=== PATIENT | male | born 1980 | race Caucasian/White ===

== ENCOUNTER 2020-12-01 03:20 | Emergency (ER) | payer BC ==
[2020-12-01] MEDS ORDERED: Ketorolac 60 MG/2 ML SDV IM ONE (03:45)
--- NOTE | 2020-12-01 03:48 | EDM.PDOC ---
ED HPI GENERAL MEDICAL PROBLEM - General Chief Complaint: Back Pain or Injury Stated Complaint: BACK PAIN Time Seen by Provider: 12/01/20 03:35 Source of Information: Reports: Patient History Limitations: Reports: No Limitations - History of Present Illness INITIAL COMMENTS - FREE TEXT/NARRATIVE: 40-year-old male woke up 2 hours ago with intense left-sided flank pain radiating around to the left lower abdomen. It was the worst pain he had ever experienced, so he drove over 40 miles to be checked out. The pain is now lessened but is still present. No vomiting, no fevers or chills, no dysuria. Onset: Sudden Duration: Hour(s): (2 hours ago) Location: Reports: Back (Left flank and left lower abdomen) Associated Symptoms: Reports: No Other Symptoms Left Posterior Back Pain Score (Numeric/FACES): 3 - Related Data Allergies Allergy/AdvReac Type Severity Reaction Status Date / Time Tetanus Vaccines and Toxoid Allergy Sweating Verified 12/01/20 03:34 Home Meds: Home Meds NK [No Known Home Meds] 12/01/20 [History] Past Medical History Respiratory History: Reports: Asthma Neurological History: Reports: Other (See Below) Other Neuro History: chiari malformation 2 - Infectious Disease History Infectious Disease History: Reports: Chicken Pox Social & Family History - Tobacco Use Tobacco Use Status *Q: Current Every Day Tobacco User Years of Tobacco use: 28 Packs/Tins Daily: 1 - Caffeine Use Caffeine Use: Reports: Soda Caffeine Use Comment: 2 pops per day - Recreational Drug Use Recreational Drug Use: No ED ROS GENERAL - Review of Systems Review Of Systems: See Below Constitutional: Denies: Fever, Chills HEENT: Reports: No Symptoms Respiratory: Reports: No Symptoms Cardiovascular: Reports: No Symptoms GI/Abdominal: Reports: No Symptoms Skin: Reports: No Symptoms Neurological: Denies: Headache ED EXAM,LOWER BACK PAIN/INJURY - Physical Exam Exam: See Below Exam Limited By: Uncooperative General Appearance: No Apparent Distress (Still looks somewhat uncomfortable but not distressed) Head: Atraumatic Respiratory/Chest: No Respiratory Distress, Lungs Clear Cardiovascular: Regular Rate, Rhythm GI/Abdominal: Soft, Non-Tender Back Exam: No: CVA Tenderness (R), CVA Tenderness (L) Course - Vital Signs Last Recorded V/S: Last Vital Signs Temp 97.1 F 03/02/21 03:40 Pulse 86 12/01/20 03:40 Resp 16 12/01/20 03:40 BP 137/96 H 12/01/20 03:40 Pulse Ox 96 12/01/20 03:40 - Orders/Labs/Meds Meds: Medications Discontinued Medications Generic Name Dose Route Start Last Admin Trade Name Cornelia PRN Reason Stop Dose Admin Ketorolac Tromethamine 60 mg 12/01/20 03:45 12/01/20 03:49 Toradol IM 12/01/20 03:46 60 mg ONETIME ONE Administration Tamsulosin HCl 0.4 mg 12/01/20 04:18 12/01/20 04:23 Flomax PO 12/01/20 04:19 0.4 mg ONETIME ONE Administration - Re-Assessments/Exams Free Text/Narrative Re-Assessment/Exam: 12/01/20 03:47 This patient presents as a kidney stone in the left side, 60 mg of IM Toradol wa s given and a CT scan without contrast will be done to confirm. 12/01/20 04:18 CT scan shows a very small stone but still close to the bladder on the left side. A small amount of hydronephrosis is behind it. Patient was given 0.4 mg of Flomax, and had some improvement after the Toradol. 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 No sign of any additional renal or ureteral calculi on either side. Small cyst in the lower interpolar right kidney of no clinical concern. CT of the pelvis shows moderate enlargement of the prostate. Small fat containing direct right inguinal hernia. Departure - Departure Time of Disposition: 04:28 Disposition: Home, Self-Care 01 Clinical Impression: Renal colic on left side, Kidney stone on left side - Discharge Information Instructions: Kidney Stones, [id number] Referrals: PCP,None [Primary Care Provider] - Forms: ED Department Discharge Care Plan Goals: Take 1 Toradol or ketorolac pill every 6-8 hours, and add 1-2 Percocet if needed for extra pain control. Stay hydrated, and return anytime if worsening such as fever, vomiting the medications or pain is not controlled. Otherwise recheck in 2 to 3 days if pain is still persistent. Sepsis Event Note (ED) - Evaluation Sepsis Screening Result: No Definite Risk - Focused Exam Vital Signs: Vital Signs Temp Pulse Resp BP Pulse Ox 12/01/20 03:40 97.1 F 86 16 137/96 H 96
[2020-12-01] MEDS ORDERED: Tamsulosin 0.4 MG Cap.ER PO ONE (04:18)
--- NOTE | 2020-12-01 04:29 | CRLCT ---
INDICATION: Right flank pain. COMPARISON: None available TECHNIQUE: CT examination of the abdomen and pelvis was performed without contrast enhancement using 2 mm thick axial sections from the lung bases through the pubic symphysis. Oral contrast was not administered. Please note that all CT scans at this facility use dose modulation, iterative reconstruction, and/or weight-based dosing when appropriate to reduce radiation dose to as low as reasonably achievable. FINDINGS: In the abdomen, the unenhanced liver has several tiny cysts in the dome of the left lobe of the liver, in segments 2 and 4a. The largest is in segment 3 a measuring 7 millimeters in diameter. The rest of the liver is normal in appearance with no sign of any mass. The spleen, pancreas, and adrenals are normal in appearance. There is mild left hydronephrosis pre spine a 2 millimeter left proximal ureteral calculus located at the L2-3 level. There is no sign of any additional renal or ureteral calculi on either side. There is no sign of right hydronephrosis or hydroureter. There is a 1.3 centimeter low-density region in the lower interpolar right kidney consistent with a cyst. The gallbladder is normal in appearance. The abdominal aorta is normal in caliber with no sign of dilatation. There is no sign of retroperitoneal mass or adenopathy. The stomach, loops of small bowel, and colon in the abdomen are normal in appearance. There is a small fat containing periumbilical hernia. The cecum is located in the right lower quadrants, with the normal appendix also located in the right lower quadrant, above the pelvis. There is no sign of any inflammatory reaction around the appendix to suggest appendicitis. The loops of small bowel and colon in the pelvis are normal in appearance. The prostate is moderately enlarged and is otherwise normal in appearance. The urinary bladder is normal in appearance. There is no sign of pelvic or inguinal mass or adenopathy. There is a small fat containing direct inguinal hernia on the right. There is no sign of free air or free fluid in the abdomen or pelvis. The lung bases are clear. The osseous structures are normal in appearance for the patient`s age. 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 No sign of any additional renal or ureteral calculi on either side. Small cyst in the lower interpolar right kidney of no clinical concern. CT of the pelvis shows moderate enlargement of the prostate. Small fat containing direct right inguinal hernia. Please note that all CT scans at this facility use dose modulation, iterative reconstruction, and/or weight-based dosing when appropriate to reduce radiation dose to as low as reasonably achievable. Dictated by Saul Haney MD @ Dec 01 2020 4:20AM Signed by Dr. Saul Haney @ Dec 01 2020 4:28AM
== END 2020-12-01 04:39 | disposition home or self-care (01) ==
LOC: JP.ED 03:20
DX: N13.2 Hydronephrosis with renal and ureteral calculous obstruction (principal); J45.909 Unspecified asthma, uncomplicated; Z88.7 Allergy status to serum and vaccine; Z72.0 Tobacco use
CPT/HCPCS: 74176; 96372; 99283; 99284; A9270; J1885